=== PATIENT | male | born 1940 | race Hispanic/Latino ===

== ENCOUNTER 2019-12-04 16:52 | Emergency (ER) | payer MEDICARE ==
--- NOTE | 2019-12-04 17:08 | Emergency Department Report ---
ED CPR HPI - General Stated Complaint: CARDIAC ARREST Time Seen by Provider: 12/04/19 17:02 - History of Present Illness Initial Comments: Patient is 78 years old male with history of coronary artery disease and hypertension. Patient brought to the emergency room via EMS from home in a full cardiac arrest, CPR in progress. EMS stated that patient collapsed while he was in the bathroom. ACLS immediately initiated by EMS, patient initial rhythm was asystole. Patient intubated at the scene with a 7.5 ET tube. Patient had 1 episode of V. fib for which patient received 200 J and change to PEA and then asystole. In the ER patient remained in asystole. ET tube placement confirmed by me with good breath sounds on both sides and oxygen saturation of 97%. Despite the effort of resuscitation patient remain in asystole. Patient pronounced at 5 PM. For further information please refer to code sheets. MD Complaint: collapsed during activity -: minute(s) (30) Place: home Bystander CPR Performed: No AED Applied by Bystander/Radial Drill Press Operator For Plastic: No Initial Findings in the Field: no pulse, systole ROSC in the Field: No Associated Injuries: No Treatments Prior to Arrival: intubation, epinephrine mgs # - Related Data Home Medications Medication Instructions Recorded Confirmed Last Taken AtorvaSTATin [Lipitor] 40 mg PO QHS 02/17/19 07/01/19 Unknown Irbesartan 150 mg PO DAILY 02/17/19 07/01/19 Unknown Levothyroxine [Synthroid] 100 mcg PO DAILY 02/17/19 07/01/19 Unknown Oxycodone HCl [oxyCONTIN ER] 30 mg PO Q4-6H PRN 02/17/19 07/01/19 Unknown Pregabalin [Lyrica] 100 mg PO BID 02/17/19 07/01/19 Unknown Rivaroxaban [Xarelto] 20 mg PO DAILY 02/17/19 07/01/19 Unknown Terazosin HCl 10 mg PO QHS 02/17/19 07/01/19 Unknown dilTIAZem CD [Cardizem CD] 300 mg PO QDAY 02/17/19 07/01/19 Unknown hydrALAZINE [Apresoline TAB] 100 mg PO BID 02/17/19 07/01/19 Unknown Oxycodone HCl/Acetaminophen 1 each PO Q4H PRN 07/01/19 07/01/19 Unknown [Percocet 10/325 mg] Venlafaxine HCl [Venlafaxin ER] 3 cap PO QDAY 07/01/19 07/01/19 Unknown Allergies Allergy/AdvReac Type Severity Reaction Status Date / Time No Known Allergies Allergy Unverified 02/17/19 12:40 ED Review of Systems ROS: Stated complaint: CARDIAC ARREST Other details as noted in HPI Comment: Unobtainable due to pts medical conditions ED Past Medical Hx - Past Medical History Hx Hypertension: Yes Hx Heart Attack/AMI: Yes (?when) Hx Arthritis: Yes (Hips, knees) - Surgical History Hx Coronary Stent: Yes Additional Surgical History: du hip s/p - Social History Smoking Status: Never Smoker - Medications Home Medications: Home Medications Medication Instructions Recorded Confirmed Last Taken Type AtorvaSTATin [Lipitor] 40 mg PO QHS 02/17/19 07/01/19 Unknown History Irbesartan 150 mg PO DAILY 02/17/19 07/01/19 Unknown History Levothyroxine [Synthroid] 100 mcg PO DAILY 02/17/19 07/01/19 Unknown History Oxycodone HCl [oxyCONTIN ER] 30 mg PO Q4-6H PRN 02/17/19 07/01/19 Unknown History Pregabalin [Lyrica] 100 mg PO BID 02/17/19 07/01/19 Unknown History Rivaroxaban [Xarelto] 20 mg PO DAILY 02/17/19 07/01/19 Unknown History Terazosin HCl 10 mg PO QHS 02/17/19 07/01/19 Unknown History dilTIAZem CD [Cardizem CD] 300 mg PO QDAY 02/17/19 07/01/19 Unknown History hydrALAZINE [Apresoline TAB] 100 mg PO BID 02/17/19 07/01/19 Unknown History Oxycodone HCl/Acetaminophen 1 each PO Q4H PRN 07/01/19 07/01/19 Unknown History [Percocet 10/325 mg] Venlafaxine HCl [Venlafaxin ER] 3 cap PO QDAY 07/01/19 07/01/19 Unknown History ED Physical Exam - General General appearance: other (CPR in progress) - Head Head exam: Present: atraumatic, normocephalic, normal inspection - Eye Eye exam: Present: PERRL (5 mm fixed and dilated) - ENT ENT exam: Present: normal exam - Respiratory Respiratory exam: Present: other (No spontaneous breathing) - Cardiovascular Cardiovascular Exam: Present: other (No spontaneous heart tones) ED Medical Decision Making - Medical Decision Making Patient is 78 years old male with history of coronary artery disease and hypertension. Patient brought to the emergency room via EMS from home in a full cardiac arrest, CPR in progress. EMS stated that patient collapsed while he was in the bathroom. ACLS immediately initiated by EMS, patient initial rhythm was asystole. Patient intubated at the scene with a 7.5 ET tube. Patient had 1 episode of V. fib for which patient received 200 J and change to PEA and then asystole. In the ER patient remained in asystole. ET tube placement confirmed by me with good breath sounds on both sides and oxygen saturation of 97%. Despite the effort of resuscitation patient remain in asystole. Patient pronounced at 5 PM. For further information please refer to code sheets. No family available. Critical Care Time: Yes Critical care time in (mins) excluding proc time.: 30 Critical care attestation.: If time is entered above; I have spent that time in minutes in the direct care of this critically ill patient, excluding procedure time. ED Disposition Clinical Impression: Cardiopulmonary arrest Disposition: DC-20 Is pt being admited?: No Condition: Stable
== END 2019-12-04 18:48 ==
LOC: ED 16:52
DX: I46.9 Cardiac arrest, cause unspecified (principal); I10 Essential (primary) hypertension; I25.10 Atherosclerotic heart disease of native coronary artery without angina pectoris; I25.2 Old myocardial infarction; M17.0 Bilateral primary osteoarthritis of knee; M16.0 Bilateral primary osteoarthritis of hip; Z98.890 Other specified postprocedural states; Z95.5 Presence of coronary angioplasty implant and graft; Z79.899 Other long term (current) drug therapy
CPT/HCPCS: 92950